=== PATIENT | female | born 1990 | race Caucasian/White ===

== ENCOUNTER 2020-11-25 11:38 | Emergency (ER) | payer OTHER ==
[2020-11-25 12:53] LABS: HEMOGLOBIN 16.3 gm/dl (12.3-15.3); RED BLOOD COUNT 4.87 M/UL (4.00-5.10); WHITE BLOOD COUNT 14.8 K/UL (4.5-11.0)
[2020-11-25 13:17] LABS: BUN/CREATININE RATIO 11 (0-10)
== END 2020-11-25 15:39 | disposition home or self-care (01) ==
LOC: ER1 11:38
PROVIDERS: Physician Assistant
DX: R00.1 Bradycardia, unspecified (principal); E86.0 Dehydration; Z20.822 Contact with and (suspected) exposure to COVID-19; F17.210 Nicotine dependence, cigarettes, uncomplicated
CPT/HCPCS: 71045; 80053; 80307; 81001; 82550; 82553; 83874; 84439; 84443; 84484; 84703; 85025; 87086; 93005; 99285; U0002